=== PATIENT | female | born 1995 | race African-American/Black ===

== ENCOUNTER 2018-06-25 22:45 | Emergency (ER) | payer BC, OTHER ==
[2018-06-25 22:52] VITALS: BP 122/101
[2018-06-25] MEDS ORDERED: LIDOCAINE 2% VISCOUS 15 ML UDCUP PO ONE (22:55)
[2018-06-25] MEDS ORDERED: MAG HYDROX/AL HYDROX/SIMETH 30 ML UDCUP PO ONE (22:55)
[2018-06-25] MEDS ORDERED: HYOSCYAMINE SULFATE 0.125 MG TAB PO ONE (22:55)
--- NOTE | 2018-06-25 22:59 | EDPHY ---
H & P Stated Complaint: TOOK A BORIC ACID VAGINAL SUPPOSITORY BY MOUTH AT 4PM TODAY ACCIDENTALLY Time Seen by Provider: 06/25/18 22:56 HPI/ROS: HPI: This is a 23-year-old female who presents with Chief Complaint: TOOK A BORIC ACID VAGINAL SUPPOSITORY BY MOUTH AT 4PM TODAY ACCIDENTALLY Location: GI Quality: ingestion Duration: 4:00 p.m. Approximately 7 hr prior to arrival Signs and Symptoms: no fever, no nausea, no vomiting, no hematemesis, no blood in stool, no abdominal bloating, no diarrhea, no back pain, no urinary symptoms , no vaginal bleeding/discharge, no indigestion, no chest pain, no shortness of breath Timing: Acute Severity: Mild Context: Patient reports that she bought vaginal pH pills at the store today and around 4:00 p.m. She took 1 of the pills. She reports that she must picked up the wrong bottle because when she looked at the labile after ingesting the pills she realized that it was pH balance work acid gelatin vaginal suppository. She is ate dinner and drink fluids without difficulty since this time. She denies any throat irritation, coughing, shortness of breath, abdominal pain, nausea, vomiting. She was reading on the Internet about work acid ingestion in became concerned so she came to the emergency room for further evaluation. Modifying Factors: None Comment: ROS: A comprehensive 10 system review of systems is otherwise negative aside from elements mentioned in the history of present illness. MEDICAL/SURGICAL/SOCIAL HISTORY: Medical history: Major depression, general anxiety disorder. Surgical history: Denies Social history: Nonsmoker. Family history noncontributory. CONSTITUTIONAL: Extremely well-appearing young adult white female, awake and alert, no obvious distress HEENT: Atraumatic and normocephalic, PERRL, EOMI. Nares patent; no rhinorrhea; no nasal mucosal edema. Tympanic membranes clear. Oropharynx clear, no exudate and moist pink mucosa. Airway patent. No lymphadenopathy. No meningismus. Cardiovascular: Normal S1/S2, regular rate, regular rhythm, without murmur rub or gallop. PULMONARY/CHEST: Symmetrical and nontender. Clear to auscultation bilaterally. Good air movement. No accessory muscle usage. ABDOMEN: Soft, nondistended, nontender, no rebound, no guarding, no peritoneal signs, no masses or organomegaly. No CVAT. EXTREMITIES: 2/2 pulses, strength 5/5, no deformities, no clubbing, no cyanosis or edema. NEUROLOGICAL: no focal neuro deficits. GCS 15. SKIN: Warm and dry, no erythema. no rash. Good capillary refill. Source: Patient Exam Limitations: No limitations - Personal History LMP (Females 10-55): 8-14 Days Ago Current Tetanus/Diphtheria Vaccine: Unsure - Medical/Surgical History Hx Asthma: No Hx Chronic Respiratory Disease: No Hx Diabetes: No Hx Cardiac Disease: No Hx Renal Disease: No Hx Cirrhosis: No Hx Alcoholism: No Hx HIV/AIDS: No Hx Splenectomy or Spleen Trauma: No Other PMH: depression, ANXIETY - Social History Smoking Status: Never smoked Constitutional: Initial Vital Signs Temperature (C) 36.9 C 06/25/18 22:48 Heart Rate 85 06/25/18 22:48 Respiratory Rate 18 06/25/18 22:48 Blood Pressure 122/101 H 06/25/18 22:48 O2 Sat (%) 98 06/25/18 22:48 O2 Delivery Mode Room Air Allergies/Adverse Reactions: No Known Allergies Allergy (Unverified 06/25/18 22:48) Home Medications: Medication Instructions Recorded ALPRAZolam [Xanax 0.5 MG (*)] 0.5 mg PO DAILY PRN 01/21/16 Medical Decision Making ED Course/Re-evaluation: Vital signs reviewed and stable upon arrival. 2259: Poison control called advised supportive care Given GI cocktail. This patient was seen under the supervision of my secondary supervising physician. I evaluated care for this patient independently. Discussed this patient with Dr. Simeon. Differential Diagnosis: Differential diagnosis includes but is not limited to gastric perforation, esophageal perforation, esophagitis, gastritis. - Data Points Medications Given: Discontinued Medications Al Hydroxide/Mg Hydroxide (Maalox Susp) 30 ml PO ONCE ONE Stop: 06/25/18 22:56 Last Admin: 06/25/18 23:04 Dose: 30 ml Hyoscyamine Sulfate (Levsin, Hyomax-Sl) 0.25 mg PO ONCE ONE Stop: 06/25/18 22:56 Last Admin: 06/25/18 23:03 Dose: 0.25 mg Lidocaine (Lidocaine 2% Viscous) 15 ml PO ONCE ONE Stop: 06/25/18 22:56 Last Admin: 06/25/18 23:04 Dose: 15 ml Departure - Departure Disposition: Home, Routine, Self-Care Clinical Impression: Accidental ingestion of substance Qualifiers: Encounter type: initial encounter Qualified Code(s): T65.91XA - Toxic effect of unspecified substance, accidental (unintentional), initial encounter Condition: Good Instructions: Poison Proofing Your Home (ED) Additional Instructions: Consume a minimum of 8-10 glasses of water or electrolyte fluid replacement drinks that include Gatorade, Powerade, Pedialyte. Take Pepto-Bismol or Zantac as needed for indigestion. Referrals: [facility],. [Clinic] - As per Instructions
== END 2018-06-25 23:21 | disposition home or self-care (01) ==
DX: T49.0X1A Poisoning by local antifungal, anti-infective and anti-inflammatory drugs, accidental (unintentional), initial encounter (principal); F32.9 Major depressive disorder, single episode, unspecified; F41.9 Anxiety disorder, unspecified